=== PATIENT | male | born 1970 | race African-American/Black ===

== ENCOUNTER 2019-04-02 14:02 | Inpatient (IN) | payer OTHER | END 2019-04-05 06:40 | disposition home or self-care (01) | LOC: YASAS 14:02 → Y3N 19:54 ==

== ENCOUNTER 2020-09-20 08:08 | Inpatient (IN) | payer OTHER ==
[2020-09-20 10:12] VITALS: BMI 51.5
[2020-09-20] MEDS ORDERED: METHOCARBAMOL 500 MG TABLET PO PRN (10:56)
[2020-09-20] MEDS ORDERED: MAG HYDROX/AL HYDROX/SIMETH 30 ML UNIT-DOSE CUP PO PRN (10:56)
[2020-09-20] MEDS ORDERED: chlordiazePOXIDE HCL 25 MG CAPSULE PO PRN (10:56)
[2020-09-20] MEDS ORDERED: ACETAMINOPHEN 325 MG TABLET (FP) PO PRN (10:56)
[2020-09-20] MEDS ORDERED: BISMUTH SUBSALICYLATE 524 MG/30 ML UD PO PRN (10:56)
[2020-09-20] MEDS ORDERED: IBUPROFEN 400 MG TABLET (FP) PO PRN (10:56)
[2020-09-20] MEDS ORDERED: MENTHOL/PHENOL 1 EACH UD MM PRN (10:56)
[2020-09-20] MEDS ORDERED: MAGNESIUM CITRATE 300 ML BOTTLE PO PRN (10:56)
[2020-09-20] MEDS ORDERED: ONDANSETRON *ODT* 4 MG TABLET SL PRN (10:56)
[2020-09-20] MEDS ORDERED: NICOTINE POLACRILEX 2 MG GUM BUC PRN (10:56)
[2020-09-20] MEDS ORDERED: MAGNESIUM HYDROX 2400MG/30ML ORAL SUSPENSION 30 ML CUP PO PRN (10:56)
[2020-09-20] MEDS: hydrOXYzine PAMOATE 25 MG CAPSULE (FP) PO SCH ×3 (16:42→22:23)
[2020-09-20] MEDS: chlordiazePOXIDE HCL 25 MG CAPSULE PO SCH ×2 (17:58→22:23)
[2020-09-20] MEDS: MELATONIN 5 MG TABLETS PO SCH (22:22)
[2020-09-20] MEDS: GABAPENTIN 300 MG CAPSULE PO SCH (22:22)
[2020-09-20] MEDS: THIAMINE HCL 100 MG TABLET (FP) PO SCH (22:23)
[2020-09-21] MEDS: hydrOXYzine PAMOATE 25 MG CAPSULE (FP) PO SCH ×5 (06:41→22:19)
[2020-09-21] MEDS: chlordiazePOXIDE HCL 25 MG CAPSULE PO SCH ×4 (06:41→22:19)
[2020-09-21] MEDS: PRENATAL VITAMINS W/ FOLIC ACID TABLET (FP) PO SCH (10:57)
[2020-09-21] MEDS: amLODIPine BESYLATE 5 MG TABLET (FP) PO SCH (10:58)
[2020-09-21] MEDS: PANTOPRAZOLE 40 MG TABLET PO SCH (10:58)
[2020-09-21] MEDS: EMTRICITABINE/TENOFOV ALAFENAM (DESCOVY) TABLET PO SCH (13:35)
[2020-09-21 16:50] LABS: HEMATOCRIT 38.8 % (35.4-49); HEMOGLOBIN 12.8 GM/dL (11.7-16.9); MCHC 32.9 g/dl (32.0-35.9); MEAN CELL VOLUME 94.2 fl (80-96); MEAN PLT VOLUME 8.7 fl (7.5-11.1); PLATELET COUNT 297 K/MM3 (134-434); RBC 4.12 M/mm3 (4.00-5.60); RDW 13.8 % (11.9-15.9)
[2020-09-21 16:55] LABS: POTASSIUM 4.4 mmol/L (3.5-5.1)
[2020-09-21 16:59] LABS: ALBUMIN 3.2 g/dl (3.4-5.0); BLOOD UREA NITROGEN 13.8 mg/dL (7-18); CALCIUM 8.8 mg/dL (8.5-10.1)
[2020-09-21 17:02] LABS: CREATININE 0.9 mg/dL (0.55-1.3)
[2020-09-21 17:04] LABS: BILIRUBIN,TOTAL 0.8 mg/dL (0.2-1); TOT PROT 7.5 g/dl (6.4-8.2)
[2020-09-21] MEDS ORDERED: ALBUTEROL SO4 HFA INHALER IH PRN (18:59)
[2020-09-21] MEDS: GABAPENTIN 300 MG CAPSULE PO SCH (22:19)
[2020-09-21] MEDS: THIAMINE HCL 100 MG TABLET (FP) PO SCH (22:20)
[2020-09-21] MEDS: MELATONIN 5 MG TABLETS PO SCH (22:21)
[2020-09-22] MEDS: chlordiazePOXIDE HCL 25 MG CAPSULE PO SCH ×4 (07:48→22:27)
[2020-09-22] MEDS: hydrOXYzine PAMOATE 25 MG CAPSULE (FP) PO SCH ×2 (07:49→10:54)
[2020-09-22] MEDS ORDERED: ERGOCALCIFEROL (VIT D2) 50,000 UNIT (1.25 MG) CAPSULE PO SCH ×2 (10:00)
[2020-09-22] MEDS: EMTRICITABINE/TENOFOV ALAFENAM (DESCOVY) TABLET PO SCH (10:54)
[2020-09-22] MEDS: PRENATAL VITAMINS W/ FOLIC ACID TABLET (FP) PO SCH (10:54)
[2020-09-22] MEDS: PANTOPRAZOLE 40 MG TABLET PO SCH (10:54)
[2020-09-22] MEDS: amLODIPine BESYLATE 5 MG TABLET (FP) PO SCH (10:54)
[2020-09-22] MEDS ORDERED: hydrOXYzine PAMOATE 25 MG CAPSULE (FP) PO PRN (13:17)
[2020-09-22] MEDS ORDERED: cloNIDine HCL 0.1 MG TABLET PO ONE (21:31)
[2020-09-22] MEDS: THIAMINE HCL 100 MG TABLET (FP) PO SCH (22:12)
[2020-09-22] MEDS: GABAPENTIN 300 MG CAPSULE PO SCH (22:12)
[2020-09-22] MEDS: MELATONIN 5 MG TABLETS PO SCH (22:13)
[2020-09-22] MEDS: ACETAMINOPHEN 325 MG TABLET (FP) PO PRN (22:14)
[2020-09-22] MEDS: CYCLOBENZAPRINE HCL 10 MG TABLET (FP) PO PRN (22:15)
[2020-09-23] MEDS ORDERED: chlordiazePOXIDE HCL 10 MG CAPSULE PO PRN
[2020-09-23] MEDS: chlordiazePOXIDE HCL 10 MG CAPSULE PO SCH ×4 (06:12→22:51)
[2020-09-23] MEDS: amLODIPine BESYLATE 5 MG TABLET (FP) PO SCH (10:11)
[2020-09-23] MEDS: PANTOPRAZOLE 40 MG TABLET PO SCH (10:11)
[2020-09-23] MEDS: EMTRICITABINE/TENOFOV ALAFENAM (DESCOVY) TABLET PO SCH (10:11)
[2020-09-23] MEDS: PRENATAL VITAMINS W/ FOLIC ACID TABLET (FP) PO SCH (10:12)
[2020-09-23] MEDS: IBUPROFEN 400 MG TABLET (FP) PO PRN ×2 (10:14→22:53)
[2020-09-23 19:05] LABS: URINE APPEARANCE CLEAR; URINE BILIRUBIN NEGATIVE (NEGATIVE); URINE COLOR YELLOW; URINE GLUCOSE (UA) NEGATIVE (NEGATIVE); URINE KETONE NEGATIVE (NEGATIVE); URINE LEUK ESTERASE NEGATIVE (NEGATIVE); URINE NITRITE NEGATIVE (NEGATIVE); URINE PROTEIN NEGATIVE (NEGATIVE); URINE UROBILINOGEN 0.2 mg/dL (0.2-1.0)
[2020-09-23] MEDS: THIAMINE HCL 100 MG TABLET (FP) PO SCH (22:50)
[2020-09-23] MEDS: GABAPENTIN 300 MG CAPSULE PO SCH (22:50)
[2020-09-23] MEDS: MELATONIN 5 MG TABLETS PO SCH (22:51)
[2020-09-23] MEDS: ACETAMINOPHEN 325 MG TABLET (FP) PO PRN (22:57)
[2020-09-24] MEDS: chlordiazePOXIDE HCL 10 MG CAPSULE PO SCH ×3 (06:02→16:59)
[2020-09-24] MEDS: EMTRICITABINE/TENOFOV ALAFENAM (DESCOVY) TABLET PO SCH (10:25)
[2020-09-24] MEDS: IBUPROFEN 400 MG TABLET (FP) PO PRN ×2 (10:26→22:13)
[2020-09-24] MEDS: PANTOPRAZOLE 40 MG TABLET PO SCH (10:26)
[2020-09-24] MEDS: amLODIPine BESYLATE 5 MG TABLET (FP) PO SCH (10:26)
[2020-09-24] MEDS: CYCLOBENZAPRINE HCL 10 MG TABLET (FP) PO PRN ×2 (10:26→22:13)
[2020-09-24] MEDS: PRENATAL VITAMINS W/ FOLIC ACID TABLET (FP) PO SCH (10:26)
[2020-09-24] MEDS: GABAPENTIN 300 MG CAPSULE PO SCH (22:12)
[2020-09-24] MEDS: MELATONIN 5 MG TABLETS PO SCH (22:12)
[2020-09-24] MEDS: THIAMINE HCL 100 MG TABLET (FP) PO SCH (22:12)
[2020-09-25] MEDS ORDERED: chlordiazePOXIDE HCL 10 MG CAPSULE PO ONE (05:00)
[2020-09-25] MEDS: EMTRICITABINE/TENOFOV ALAFENAM (DESCOVY) TABLET PO SCH (09:14)
[2020-09-25] MEDS: PRENATAL VITAMINS W/ FOLIC ACID TABLET (FP) PO SCH (09:14)
[2020-09-25] MEDS: PANTOPRAZOLE 40 MG TABLET PO SCH (09:14)
[2020-09-25] MEDS: amLODIPine BESYLATE 5 MG TABLET (FP) PO SCH (09:14)
[2020-09-25] MEDS: IBUPROFEN 400 MG TABLET (FP) PO PRN (09:15)
[2020-09-25 09:25] VITALS: BP 146/85; PULSE 88; TEMP 96.6
== END 2020-09-25 10:16 | disposition home or self-care (01) | DRG 775 ==
LOC: YASAS 08:08 → Y3N 11:40
PROVIDERS: ADMIT Allergy & Immunology; ATTEND Allergy & Immunology
PROC: HZ2ZZZZ Detoxification Services for Substance Abuse Treatment (ICD-10-PCS; principal; 2020-09-20)
DX: F10.230 Alcohol dependence with withdrawal, uncomplicated (principal); F43.10 Post-traumatic stress disorder, unspecified; F41.9 Anxiety disorder, unspecified; Z21 Asymptomatic human immunodeficiency virus [HIV] infection status; G47.00 Insomnia, unspecified; I15.9 Secondary hypertension, unspecified; J45.909 Unspecified asthma, uncomplicated; K21.9 Gastro-esophageal reflux disease without esophagitis; M54.5 Low back pain; E66.01 Morbid (severe) obesity due to excess calories; Z68.43 Body mass index [BMI] 50.0-59.9, adult; Z90.49 Acquired absence of other specified parts of digestive tract; Z56.0 Unemployment, unspecified; Z59.0 Homelessness; Z88.2 Allergy status to sulfonamides
CPT/HCPCS: 36415; 80053; 81003; 85027; 86593; 86780; 93005; 93010; C9803; J0735; U0003